=== PATIENT | female | born 1950 | race Caucasian/White ===

== ENCOUNTER → 2018-06-13 | Outpatient (CLI) | payer MEDICARE, OTHER ==
[~2018-06-13] MED LIST: FE-TABS325 MG PO; FERROUS SU325 MG/TAB PO; FLAGYL500 MG PO; FOLIC ACID 40400 MCG PO; NORCO 325 MG-7.1 TAB PO; ROXICODONE 55 MG/TAB PO; VITAMIN C PO; VITAMIN D1000 IU PO; VTAMINC250TA PO; VYTORIN 10 MG-11 TAB PO; XARELTO10 MG PO; ZOCOR 20MG20 MG PO
== END ==
LOC: MC.RAD 08:56
DX: Z12.31 Encounter for screening mammogram for malignant neoplasm of breast (principal)

== ENCOUNTER → 2021-04-01 | Outpatient (CLI) | payer MEDICARE, OTHER | LOC: MC.RAD 13:21 | DX: Z12.31 Encounter for screening mammogram for malignant neoplasm of breast (principal) ==